=== PATIENT | female | born 1975 | race Caucasian/White ===

== ENCOUNTER 2021-08-19 11:38 | Outpatient (CLI) | payer OTHER | END 2021-08-19 11:39 | disposition home or self-care (01) | LOC: CSHMAMMO 11:38 | PROVIDERS: ATTEND Nurse Practitioner Family | DX: Z12.31 Encounter for screening mammogram for malignant neoplasm of breast (principal); Z98.82 Breast implant status | CPT/HCPCS: 77063; 77067 ==

== ENCOUNTER 2024-08-28 12:35 | Outpatient (CLI) | payer OTHER | END 2024-08-28 12:36 | disposition home or self-care (01) | LOC: CSHMAMMO 12:35 | PROVIDERS: ATTEND Family Medicine | DX: Z12.31 Encounter for screening mammogram for malignant neoplasm of breast (principal); Z98.82 Breast implant status | CPT/HCPCS: 77063; 77067 ==